=== PATIENT | female | born 1960 | race Caucasian/White ===

== ENCOUNTER → 2020-06-30 | Outpatient (CLI) | payer BC | END | disposition home or self-care (01) | LOC: COVID19 14:32 | PROVIDERS: ATTEND Nurse Practitioner | DX: Z20.828 Contact with and (suspected) exposure to other viral communicable diseases (principal) ==

== ENCOUNTER 2023-01-18 15:48 | Emergency (ER) | payer BC ==
[~2023-01-18] VITALS: Wt 69.2 kg
[2023-01-18] MEDS ORDERED: AUVI-Q0.1 MG/0.1 IJ (19:17)
== END 2023-01-18 19:28 | disposition home or self-care (01) ==
LOC: ED 15:48
DX: T63.441A Toxic effect of venom of bees, accidental (unintentional), initial encounter (principal); Z98.890 Other specified postprocedural states; Z87.891 Personal history of nicotine dependence; Y92.89 Other specified places as the place of occurrence of the external cause